=== PATIENT | male | born 1975 | race Hispanic/Latino ===

== ENCOUNTER 2023-10-31 13:16 | Emergency (ER) | payer OTHER ==
[~2023-10-31] VITALS: Ht 167.6 cm; Wt 82.6 kg
[2023-10-31 13:49] VITALS: BP 152/97; PULSE 72; RESP 16; O2SAT 97
[2023-10-31] MEDS: DIPH,PERTUSS(ACELL),TET VAC/PF 0.5 ML VIAL IM ONE (14:11)
[2023-10-31] MEDS: LIDOCAINE HCL 1% 20 ML VIAL MISC SCH (14:12)
[2023-10-31] MEDS ORDERED: IBUP-2077 PO (15:05)
[2023-10-31] MEDS ORDERED: CEPH500T PO (15:05)
[2023-10-31] MEDS: CEPHALEXIN 500 MG CAPSULE PO ONE (15:16)
== END 2023-10-31 15:24 | disposition home or self-care (01) ==
LOC: EDH 13:16
DX: S61.412A Laceration without foreign body of left hand, initial encounter (principal); I10 Essential (primary) hypertension; W26.0XXA Contact with knife, initial encounter; Y93.89 Activity, other specified; Y92.89 Other specified places as the place of occurrence of the external cause; Y99.8 Other external cause status
CPT/HCPCS: 12001; 90471; 90715

== ENCOUNTER 2023-11-07 15:39 | Emergency (ER) | payer OTHER ==
[~2023-11-07] VITALS: Ht 167.6 cm; Wt 82.6 kg
[~2023-11-07 15:39] MED LIST: CEPH500T PO; IBUP-2077 PO
[2023-11-07 15:48] VITALS: BP 146/83; PULSE 80; RESP 16
== END 2023-11-07 18:11 | disposition home or self-care (01) ==
LOC: EDH 15:39
DX: S61.412D Laceration without foreign body of left hand, subsequent encounter (principal); I10 Essential (primary) hypertension; Z48.02 Encounter for removal of sutures; Z79.899 Other long term (current) drug therapy; X58.XXXD Exposure to other specified factors, subsequent encounter
CPT/HCPCS: 99282